=== PATIENT | female | born 1955 | race Caucasian/White ===

== ENCOUNTER → 2016-09-25 | Outpatient (CLI) | payer BC ==
[~2016-09-25] MED LIST: ACET-1256 PO; FEXO1TAB58 PO; HYZ/50125 PO; LOSA1TAB38 PO; MULT-513 PO; OXYC-643 PO; PANT1TAB48 PO; TRIATAB3 PO; VSC/10 PO
[2016-09-25 12:50] LABS: BLOOD UREA NITROGEN 16 mg/dl (7-18); BUN/CREATININE RATIO 21.5 (10-20); CALCIUM 9.5 mg/dl (8.5-10.1); CARBON DIOXIDE 31 mmol/L (21-32); CHLORIDE 106 mmol/L (98-107); CREATININE 0.73 mg/dl (0.60-1.20); GLUCOSE 95 mg/dl (70-99); POTASSIUM 4.3 mmol/L (3.5-5.1); SODIUM 143 mmol/L (136-145)
[2016-09-25 12:54] LABS: CHOLESTEROL 165 mg/dl (0-200); CHOLESTEROL/HDL RATIO 2.1; HDL CHOLESTEROL 80 mg/dl; LDL CHOLESTEROL CALCULATED 61 mg/dl; TRIGLYCERIDES 122 mg/dl (0-150); VERY LOW DENSITY LIPOPROT CALC 24 mg/dl
== END | disposition home or self-care (01) ==
LOC: C.LABPVFM 07:35
PROVIDERS: ATTEND Nurse Practitioner
DX: Z00.00 Encounter for general adult medical examination without abnormal findings (principal); I10 Essential (primary) hypertension

== ENCOUNTER 2016-10-08 11:26 | Emergency (ER) | payer BC ==
[~2016-10-08] VITALS: Ht 167.6 cm; Wt 71.0 kg
[~2016-10-08 11:26] MED LIST changes: -ACET-1256 PO; -FEXO1TAB58 PO; -HYZ/50125 PO
[2016-10-08 11:44] VITALS: TEMP 36.7; Ht 167.6 cm; Wt 71.0 kg
[2016-10-08] MEDS ORDERED: FEXO1TAB58 PO (12:42)
[2016-10-08] MEDS ORDERED: ACET-1256 PO (12:42)
[2016-10-08] MEDS ORDERED: HYZ/50125 PO (12:42)
--- NOTE | 2016-10-08 13:49 | EMERGENCY ROOM VISIT NOTE ---
History Report prepared by Hao: Amarilys Solis Under the Supervision of: Dr. Brooke Polk M.D. First contact with patient: 12:26 Chief Complaint: CONFUSION Stated Complaint: DISORIENTED EARLIER Nursing Triage Summary: Pt reports "period of forgetfulness this morning" approx 0830 that "didn't last long." Pt states, "I went out back to call my and I don't know what prompted me to do that." Denies numbness/tingling or unilateral weakness. Reports mild h/a 06/23. History of Present Illness The patient is a 61 year old female who presents to the Emergency Room with complaints of an episode of confusion this morning. She was outside doing yard work and exerting herself. The next thing she remembers is being inside on the phone with her . She was unable to recall why she called him or where he was going. She could not understand what he was saying and he was unable to understand her. He contacted a friend to go check on her by which time she was back to normal. She believes the episode of confusion lasted around 1 minute. She does not believe that she passed out. She has never had these symptoms before. She reports feeling lightheaded and disoriented. She has some headache. She denies any abdominal pain, urinary symptoms, chest pain, SOB, or vomiting. She has a history of hypertension. She denies any history of cancer or stroke. She took her blood pressure medications and Radha this morning. Source of History: patient Onset: this morning Position: other (global) Quality: other (confusion) Timing: other (episodic) Associated Symptoms: + headache, No SOB, No abdominal pain, No chest pain, No urinary symptoms, No vomiting Note: Pt reports feeling lightheaded, disoriented. Review of Systems See HPI for pertinent positives & negatives. A total of 10 systems reviewed and were otherwise negative. Past Medical & Surgical Medical Problems: (1) ASTHMA, UNSPECIFIED (2) ESOPHAGEAL REFLUX (3) HYPERPARATHYROIDISM, UNSPECIFIED (4) HYPERTENSION NOS (5) Hysterectomy (6) Parathyroidectomy Family History Hypertension Social History Smoking Status: Never Smoker Alcohol Use: occasionally Marital Status: Housing Status: lives with significant other Occupation Status: retired Current/Historical Medications Scheduled Acetaminophen (Tylenol), 1,000 MG PO 2200 Fexofenadine-Pseudoephedrine (Radha-D 24 Hour Allergy), 1 TAB PO 0600 Hctz/Losartan (Hyzaar 12.5MG/50MG), 1 TAB PO QAM Allergies Coded Allergies: Codeine (Verified Allergy, Unknown, HEADACHE, 10/08/16) Lisinopril (Verified Adverse Reaction, Unknown, COUGH, 10/08/16) Physical Exam Vital Signs Date Time Temp Pulse Resp B/P Pulse Ox O2 Delivery O2 Flow Rate FiO2 10/08/16 16:00 65 159/89 95 10/08/16 14:09 67 17 179/96 97 Room Air 10/08/16 12:35 64 161/93 98 Room Air 10/08/16 12:23 57 10/08/16 11:44 36.7 72 18 168/87 97 Room Air Physical Exam Vital signs reviewed. General: Well-appearing, in no significant distress. HEENT: No scleral icterus, PERRLA, neck supple. Atraumatic. Cardiovascular: Regular rate and rhythm, no extra sounds. Pulmonary: Clear to auscultation bilaterally, normal work of breathing. Abdomen: Soft, nontender, nondistended, positive bowel sounds. Musculoskeletal: Atraumatic, no peripheral edema. Neurologic: Patient awake alert and oriented x 3, full strength in all 4 extremities. Cranial nerves 2 through 12 grossly intact. Skin: Warm, dry, no rash Medical Decision & Procedures ER Provider Diagnostic Interpretation: Radiology results as stated below per my review and radiologist interpretation: MRI OF THE BRAIN WITHOUT AND WITH IV CONTRAST CLINICAL HISTORY: Amnesia episode today. COMPARISON STUDY: No previous studies for comparison. TECHNIQUE: Utilizing a 1.5 María magnet and dedicated coil, multiplanar, multiecho imaging of the brain was performed pre and postcontrast administration. IV administration of 7 mL of Gadavist contrast was uneventful. FINDINGS: There are no areas of restricted diffusion. No acute intracranial hemorrhage, midline shift or mass effect is present. Brain volume is normal. Ventricular system is normal. Basilar cisterns are patent. There are no extra-axial collections. Flow-voids for the major intracranial vessels are present. No intracranial mass or pathologic enhancement is identified. Scattered white matter T2 hyperintense foci suggest mild small vessel disease. Calvarial signal is normal. Orbits and sinuses are unremarkable. There is no fluid within the mastoid air cells. IMPRESSION: 1. No acute intracranial findings. 2. No intracranial masses or pathologic enhancement. 3. Scattered white matter T2 hyperintense foci which likely reflect small vessel disease. Electronically signed by: Joseph Bell M.D. 10/08/2016 3:09 PM Dictated Date/Time: 10/08/2016 3:05 PM Laboratory Results 10/08/16 12:20 Red Blood Count 4.84, Mean Corpuscular Volume 85.3, Mean Corpuscular Hemoglobin 29.5, Mean Corpuscular Hemoglobin Concent 34.6, Mean Platelet Volume 9.4, Neutrophils (%) (Auto) 73.2, Lymphocytes (%) (Auto) 19.7, Monocytes (%) (Auto) 5.8, Eosinophils (%) (Auto) 0.9, Basophils (%) (Auto) 0.1, Neutrophils # (Auto) 5.06, Lymphocytes # (Auto) 1.36, Monocytes # (Auto) 0.40, Eosinophils # (Auto) 0.06, Basophils # (Auto) 0.01 10/08/16 12:20 Test 10/08/16 12:20 10/08/16 13:44 10/08/16 13:45 White Blood Count 6.91 K/uL (4.8-10.8) Red Blood Count 4.84 M/uL (4.2-5.4) Hemoglobin 14.3 g/dL (12.0-16.0) Hematocrit 41.3 % (37-47) Mean Corpuscular Volume 85.3 fL (80-100) Mean Corpuscular Hemoglobin 29.5 pg (25-34) Mean Corpuscular Hemoglobin Concent 34.6 g/dl (32-36) Platelet Count 286 K/uL (130-400) Mean Platelet Volume 9.4 fL (7.4-10.4) Neutrophils (%) (Auto) 73.2 % Lymphocytes (%) (Auto) 19.7 % Monocytes (%) (Auto) 5.8 % Eosinophils (%) (Auto) 0.9 % Basophils (%) (Auto) 0.1 % Neutrophils # (Auto) 5.06 K/uL (1.4-6.5) Lymphocytes # (Auto) 1.36 K/uL (1.2-3.4) Monocytes # (Auto) 0.40 K/uL (0.11-0.59) Eosinophils # (Auto) 0.06 K/uL (0-0.5) Basophils # (Auto) 0.01 K/uL (0-0.2) RDW Standard Deviation 41.4 fL (36.4-46.3) RDW Coefficient of Variation 13.2 % (11.5-14.5) Immature Granulocyte % (Auto) 0.3 % Immature Granulocyte # (Auto) 0.02 K/uL (0.00-0.02) Erythrocyte Sedimentation Rate 2 mm/hr (0-21) Anion Gap 7.0 mmol/L (3-11) Est Creatinine Clear Calc Drug Dose 78.7 ml/min Estimated GFR () 96.8 Estimated GFR (Non- 83.5 BUN/Creatinine Ratio 20.1 (10-20) Calcium Level 9.5 mg/dl (8.5-10.1) Magnesium Level 2.4 mg/dl (1.8-2.4) Total Bilirubin 0.5 mg/dl (0.2-1) Direct Bilirubin 0.1 mg/dl (0-0.2) Aspartate Amino Transf (AST/SGOT) 26 U/L (15-37) Alanine Aminotransferase (ALT/SGPT) 32 U/L (12-78) Alkaline Phosphatase 74 U/L (45-117) Total Protein 7.1 gm/dl (6.4-8.2) Albumin 4.0 gm/dl (3.4-5.0) Thyroid Stimulating Hormone (TSH) 0.388 uIu/ml (0.300-4.500) Bedside Troponin I 0.000 ng/ml (0-0.045) Influenza Type A (RT-PCR) Neg for Influ A (NEG) Influenza Type A Antigen Neg for Influ A (NEG) Influenza Type B Antigen Neg for Influ B (NEG) Influenza Type B (RT-PCR) Neg for Influ B (NEG) Laboratory results per my review. ECG Indication: altered mental status Rate (beats per minute): 66 Rhythm: normal sinus Findings: no acute ischemic change, no ectopy ED Course 1229: Past medical records reviewed. The patient was evaluated in room C9. A complete history and physical examination was performed. 1528: Upon reevaluation, the patient appeared to have improvement of her symptoms. I discussed findings with her. She verbalized agreement of the treatment plan. She was discharged home. Medical Decision Differential diagnoses: Intracranial hemorrhage, intracranial mass, migraine headache, tension headache, sinusitis, meningitis This patient was evaluated and appeared to be in no significant distress. IV access was obtained and laboratory work was drawn. The patient was placed on the cardiac catheterization technologist and found to be in a normal sinus rhythm. Laboratory work is fairly unrevealing. An MRI brain combo was performed and is read as above. There are chronic changes without acute abnormality. Urinalysis is negative. There is no evidence of seizure, the patient has no headache at this time. I do not suspect an acute stroke. At this time the etiology of the symptoms is unclear. She will be discharged to follow-up with her primary care physician for possible neurologic evaluation, particularly if this reoccurs. She will return to the ER immediately for worsening of symptoms or any medical concerns. Impression Primary Impression: Amnesia, global, transient Scribe Attestation The scribe's documentation has been prepared under my direction and personally reviewed by me in its entirety. I confirm that the note above accurately reflects all work, treatment, procedures, and medical decision making performed by me. Departure Information Dispostion Home / Self-Care Referrals Elizabeth Rosario C.R.N.P (PCP) Forms HOME CARE DOCUMENTATION FORM, IMPORTANT VISIT INFORMATION Patient Instructions My [facility] Additional Instructions Diagnosis: Transient global amnesia Please follow-up with your primary care provider within the next 2 days for reevaluation. Continue medications as prescribed. Return to the ER immediately for worsening of symptoms, fever, headache or any medical concerns.
[2016-10-08 13:50] LABS: BASO % 0.1 %; BASO ABS # 0.01 K/uL (0-0.2); COMPLETE YES; EOS % 0.9 %; HEMATOCRIT 41.3 % (37-47); IG% 0.3 %; LYMPH % 19.7 %; LYMPH ABS # 1.36 K/uL (1.2-3.4); MEAN CELL VOLUME 85.3 fL (80-100); MEAN CORPUSCULAR HEMOGLOBIN 29.5 pg (25-34); MEAN CORPUSCULAR HGB CONC 34.6 g/dl (32-36); MEAN PLATELET VOLUME 9.4 fL (7.4-10.4); MONO % 5.8 %; NEUT % 73.2 %; PLATELET COUNT 286 K/uL (130-400); RED BLOOD COUNT 4.84 M/uL (4.2-5.4); WHITE BLOOD COUNT 6.91 K/uL (4.8-10.8)
[2016-10-08 13:58] LABS: BUN/CREATININE RATIO 20.1 (10-20); CALCIUM 9.5 mg/dl (8.5-10.1); CREATININE 0.76 mg/dl (0.60-1.20); MAGNESIUM 2.4 mg/dl (1.8-2.4); POTASSIUM 3.5 mmol/L (3.5-5.1)
[2016-10-08 14:09] LABS: THYROID STIMULATING HORMONE 0.388 uIu/ml (0.300-4.500)
--- NOTE | 2016-10-08 15:10 | DIAGNOSTIC IMAGING REPORT ---
MRI OF THE BRAIN WITHOUT AND WITH IV CONTRAST CLINICAL HISTORY: Amnesia episode today. COMPARISON STUDY: No previous studies for comparison. TECHNIQUE: Utilizing a 1.5 María magnet and dedicated coil, multiplanar, multiecho imaging of the brain was performed pre and postcontrast administration. IV administration of 7 mL of Gadavist contrast was uneventful. FINDINGS: There are no areas of restricted diffusion. No acute intracranial hemorrhage, midline shift or mass effect is present. Brain volume is normal. Ventricular system is normal. Basilar cisterns are patent. There are no extra-axial collections. Flow-voids for the major intracranial vessels are present. No intracranial mass or pathologic enhancement is identified. Scattered white matter T2 hyperintense foci suggest mild small vessel disease. Calvarial signal is normal. Orbits and sinuses are unremarkable. There is no fluid within the mastoid air cells. IMPRESSION: 1. No acute intracranial findings. 2. No intracranial masses or pathologic enhancement. 3. Scattered white matter T2 hyperintense foci which likely reflect small vessel disease. Electronically signed by: Joseph Bell M.D. 10/08/2016 3:09 PM Dictated Date/Time: 10/08/2016 3:05 PM
[2016-10-08] MEDS ORDERED: GADAVIST IV PRN (15:15)
[2016-10-08 16:00] VITALS: BP 159/89; PULSE 65; O2SAT 95
[2016-10-08 16:00] LABS: INFLUENZA A PCR Neg for Influ A (NEG); INFLUENZA B PCR Neg for Influ B (NEG)
== END 2016-10-08 16:00 | disposition home or self-care (01) ==
LOC: C.EDB 11:28 → C.EDC 16:00
DX: G45.4 Transient global amnesia (principal); R42 Dizziness and giddiness; R51 Headache; I10 Essential (primary) hypertension; J45.909 Unspecified asthma, uncomplicated; K21.9 Gastro-esophageal reflux disease without esophagitis; Z79.899 Other long term (current) drug therapy; Z82.49 Family history of ischemic heart disease and other diseases of the circulatory system

== ENCOUNTER → 2016-12-28 | Outpatient (CLI) | payer BC ==
[~2016-12-28] MED LIST changes: +ACET-1256 PO; +FEXO1TAB58 PO; +HYZ/50125 PO; -LOSA1TAB38 PO; -MULT-513 PO; -OXYC-643 PO; -PANT1TAB48 PO; -TRIATAB3 PO; -VSC/10 PO
--- NOTE | 2016-12-29 07:42 | MAMMOGRAPHY REPORT ---
BILATERAL DIGITAL SCREENING MAMMOGRAM TOMOSYNTHESIS WITH CAD: 12/28/2016 CLINICAL HISTORY: Routine screening. Patient has no complaints. TECHNIQUE: Breast tomosynthesis in addition to standard 2D mammography was performed. Current study was also evaluated with a Computer Aided Detection (CAD) system. COMPARISON: Comparison is made to exams dated: 12/26/2015 mammogram, 12/24/2014 mammogram, 12/22/2013 m ammogram, 12/21/2012 mammogram, 12/21/2011 mammogram, and 12/19/2010 mammogram - [facility] [address] BREAST COMPOSITION: There are scattered areas of fibroglandular density in both breasts. FINDINGS: The parenchymal pattern is unchanged. No developing mass, architectural distortion or clus ter of suspicious microcalcifications is seen in either breast. IMPRESSION: ACR BI-RADS CATEGORY 2: BENIGN There is no mammographic evidence of malignancy. A 1 year screening mammogram is recommended. The pa tient will receive written notification of the results. Approximately 10% of breast cancers are not detected with mammography. A negative mammographic report should not delay biopsy if a clinically suggestive mass is present. Dorcas Mccord M.D. ay/:12/28/2016 18:03:36 Bright Cutter: Josselyn DURAN(Julia)(Mei), [facility] letter sent: Normal 1/2 BI-RADS Code: ACR BI-RADS Category 2: Benign
== END | disposition home or self-care (01) ==
LOC: C.MAMM 11:33
PROVIDERS: ATTEND Obstetrics & Gynecology
DX: Z12.31 Encounter for screening mammogram for malignant neoplasm of breast (principal)

== ENCOUNTER → 2017-05-25 | Outpatient (CLI) | payer BC ==
[2017-05-25 18:39] LABS: BLOOD UREA NITROGEN 16 mg/dl (7-18); BUN/CREATININE RATIO 15.2 (10-20); CALCIUM 9.9 mg/dl (8.5-10.1); CARBON DIOXIDE 31 mmol/L (21-32); CHLORIDE 103 mmol/L (98-107); CREATININE 1.06 mg/dl (0.60-1.20); GLUCOSE 102 mg/dl (70-99); POTASSIUM 3.6 mmol/L (3.5-5.1); SODIUM 137 mmol/L (136-145)
== END | disposition home or self-care (01) ==
LOC: C.LABPVFM 13:54
PROVIDERS: ATTEND Nurse Practitioner
DX: R53.83 Other fatigue (principal); R13.10 Dysphagia, unspecified

== ENCOUNTER → 2017-05-29 | Outpatient (CLI) | payer BC ==
[2017-05-29 13:23] LABS: URINE APPEARANCE CLEAR (CLEAR); URINE BILIRUBIN NEG (NEG); URINE NITRITE NEG (NEG); URINE PH 7.5 (4.5-7.5); URINE SPECIFIC GRAVITY 1.015 (1.000-1.030); UROBILINOGEN NEG (NEG); ZZUR CULT IF INDIC CLEAN CATCH YES
[2017-05-29 13:34] LABS: MANUAL MICROSCOPIC REQUIRED? NO; REVIEW REQ? YES; SULFASALICYLIC ACID POS (NEG); URINE COLOR PINK
== END | disposition home or self-care (01) ==
LOC: C.LABPVFM 11:47
PROVIDERS: ATTEND Family Medicine
DX: R39.9 Unspecified symptoms and signs involving the genitourinary system (principal)

== ENCOUNTER → 2017-06-24 | Day surgery (SDC) | payer BC ==
[2017-06-16 07:55] VITALS: Ht 166.4 cm; Wt 72.7 kg
[~2017-06-24] VITALS: Ht 166.4 cm; Wt 72.7 kg
[~2017-06-24] MED LIST changes: -ACET-1256 PO; +JUICE PLUS PO; +LIDOCAINE HCL 2% 2 ML VIAL (20MG/ML) ONE; +PRLSR20 PO; +PROPOFOL IV EMULSION 10 MG/ML 20 ML VIAL IV ONE; +SODIUM CHLORIDE 0.9% 500ML 500 ML IV ONE
[2017-06-24 15:07] VITALS: TEMP 36.7
--- NOTE | 2017-06-24 15:21 | Endo History and Physical ---
History & Physical Date of Service: Jun 24, 2017. Chief Complaint: Reflux, Dysphagia Referring Physician: Elizabeth Rosario History of Present Illness 61 yo CF who presents for EGD secondary to GERD and dysphagia. Past Surgical History Hx Cardiac Surgery: No Hx Internal Defibrillator: No Hx Pacemaker: No Hx Abdominal Surgery: Yes (RANDY BSO) Hx of Implantable Prosthesis: No Hx Post-Op Nausea and Vomiting: No Hx Cancer Surgery: No Hx Thoracic Surgery: No Hx Orthopedic: No Hx Urinary Tract Surgery: No Family History None Social History Smoking Status: Never Smoker Hx Substance Use: No Hx Alcohol Use: Yes (~1 DRINK/DAY) Allergies Coded Allergies: Codeine (Verified Adverse Reaction, Mild, HEADACHE, 06/24/17) Lisinopril (Verified Adverse Reaction, Mild, COUGH, 06/24/17) Current Medications Reported Home Medications Medications Dose Route/Sig Max Daily Dose Days Date Category [Juice Plus] 3 Cap PO DAILY 06/16/17 Reported Prilosec (Omeprazole) 20 Mg Capcr 20 Mg PO Q2D 06/16/17 Reported Radha-D 24 Hour Allergy (Fexofenadine-Pseudoephedrine) 1 Tab Tab 1 Tab PO DAILY PRN 10/08/16 Reported Hyzaar 12.5MG/50MG (HCTZ/Losartan Potassium) 1 Ea Tab 1 Tab PO QAM 10/08/16 Reported Vital Signs Weight (Kilograms): 72.73 Height (Feet): 5 Height (Inches): 5.5 Date Time Temp Pulse Resp B/P (MAP) Pulse Ox O2 Delivery O2 Flow Rate FiO2 06/24/17 15:07 36.7 79 18 163/75 (104) 98 Room Air Physical Exam General Appearance: WD/WN, no apparent distress Respiratory/Chest: Auscultation: breath sounds normal Cardiovascular: Heart Auscultation: RRR Abdomen: Bowel Sounds: normal Inspection & Palpation: soft, non-distended, no tenderness, guarding & rebound Assessment and Plan Assessment: 61 yo CF who presents for EGD secondary to GERD and dysphagia. Plan: Proceed with EGD.
--- NOTE | 2017-06-24 15:56 | Discharge Instructions ---
Endoscopy Patient Instructions Date / Procedure(s) Performed Jun 24, 2017. EGD Allergy Information Coded Allergies: Codeine (Verified Adverse Reaction, Mild, HEADACHE, 06/24/17) Lisinopril (Verified Adverse Reaction, Mild, COUGH, 06/24/17) Discharge Date / Findings Jun 24, 2017. Schatzki's Ring s/p dilation to 18mm Hiatal hernia Medication Instructions 1) Increase Prilosec to 20mg by mouth each morning 1/2 hour prior to breakfast. 2) OK to resume all medications today as prescribed Reported Home Medications Medications Dose Route/Sig Max Daily Dose Days Date Category [Juice Plus] 3 Cap PO DAILY 06/16/17 Reported Prilosec (Omeprazole) 20 Mg Capcr 20 Mg PO Q2D 06/16/17 Reported Radha-D 24 Hour Allergy (Fexofenadine-Pseudoephedrine) 1 Tab Tab 1 Tab PO DAILY PRN 10/08/16 Reported Hyzaar 12.5MG/50MG (HCTZ/Losartan Potassium) 1 Ea Tab 1 Tab PO QAM 10/08/16 Reported Provider Instructions Activity Restrictions - No exercising or heavy lifting for 24 hours. - Do not drink alcohol the day of the procedure. - Do not drive a car or operate machinery until the day after the procedure. - Do not make any important decisions or sign important papers in 24 hours after the procedure. Following Day: - Return to full activity which may include returning to work/school. Diet Start your diet with liquids and light foods (jello, soup, juice, toast). Then eat your usual diet if not nauseated. Treatment For Common After Affects For mild abdominal pain, bloating, or excessive gas: - Rest - Eat lightly - Lie on right side Follow-Up Information Follow-up with Elizabeth Rosario as scheduled Anesthesia Information What You Should Know You have had a procedure that required some medicine to reduce anxiety and discomfort. This treatment is called moderate sedation. After receiving the treatment, you may be sleepy, but you will be able to breathe on your own. The effects of the treatment may last for several hours. Follow these instructions along with Activity/Diet recommendations noted above: * Do NOT do anything where dizziness or clumsiness would be dangerous. * Rest quietly at home today, then you can be up and about tomorrow. * Have a responsible person stay with you the rest of today. * You may have had an I.V. today. If so, you may take the dressing off later today. Recommendations Call your doctor if: * Trouble breathing * Continuous vomiting for more than 24 hours * Temperature above 101 degrees * Severe abdominal pain or bloating * Pain not relieved by pain medicine ordered * There is increased drainage or redness from any incision * A large amount of rectal bleeding greater than 2-3 tablespoons. (If you had a polyp/s removed or have hemorrhoids, a small amount of blood - from the rectum is to be expected.) * You have any unanswered questions or concerns. IN THE EVENT OF A SERIOUS EMERGENCY, GO TO THE NEAREST EMERGENCY ROOM Your discharge instructions were prepared by provider Rosendo Eng. Patient Instructions Signature Page S Caryl Patient (or Guardian) Signature/Date: I have read and understand the instructions given to me by my caregivers. Caregiver/RN/Doctor Signature/Date: The above-named patient and/or guardian has received patient instructions on this date. + Original Patient Signature Page (only) stays with chart. Please make copy for patient.
--- NOTE | 2017-06-24 16:00 | GI REPORT ---
Procedure Date: 06/24/2017 3:29 PM Procedure: Upper GI endoscopy Indications: Dysphagia, Gastro-esophageal reflux disease Medicines: Monitored Anesthesia Care Complications: No immediate complications. Estimated Blood Loss: Estimated blood loss: none. Procedure: Pre-Anesthesia Assessment: - Prior to the procedure, a History and Physical was performed, and patient medications and allergies were reviewed. The patient's tolerance of previous anesthesia was also reviewed. The risks and benefits of the procedure and the sedation options and risks were discussed with the patient. All questions were answered, and informed consent was obtained. Prior Anticoagulants: The patient has taken no previous anticoagulant or antiplatelet agents. ASA Grade Assessment: II - A patient with mild systemic disease. After reviewing the risks and benefits, the patient was deemed in satisfactory condition to undergo the procedure. After obtaining informed consent, the endoscope was passed under direct vision. Throughout the procedure, the patient's blood pressure, pulse, and oxygen saturations were monitored continuously. The scope was introduced through the mouth, and advanced to the second part of duodenum. The upper GI endoscopy was accomplished without difficulty. The patient tolerated the procedure well. Findings: A moderate Schatzki ring (acquired) was found at the gastroesophageal junction. A TTS dilator was passed through the scope. Dilation with a 15-16.5-18 mm balloon dilator was performed to 18 mm. The dilation site was examined and showed moderate improvement in luminal narrowing. A small hiatal hernia was present. The examined duodenum was normal. Impression: - Moderate Schatzki ring. Dilated. - Small hiatal hernia. - Normal examined duodenum. - No specimens collected. Recommendation: - Resume previous diet. - Use Prilosec (omeprazole) 20 mg PO daily. - Return to GI clinic as previously scheduled. Rosendo Eng DO 06/24/2017 3:59:24 PM This report has been signed electronically. Note Initiated On: 06/24/2017 3:29 PM I attest to the content of the Intraoperative Record and orders documented therein, exceptions below
--- NOTE | 2017-06-24 16:11 | Anesthesiology Progress Note ---
Anesthesia Post Op Note Date & Time Jun 24, 2017 at 16:11 Vital Signs Pain Intensity: 0 Vital Signs Past 12 Hours Date Time Temp Pulse Resp B/P (MAP) Pulse Ox O2 Delivery O2 Flow Rate FiO2 06/24/17 15:59 78 16 105/70 (82) 97 Room Air 06/24/17 15:07 36.7 79 18 163/75 (104) 98 Room Air Notes Mental Status: alert / awake / arousable, participated in evaluation Pt Amnestic to Procedure: Yes Nausea / Vomiting: adequately controlled Pain: adequately controlled Airway Patency, RR, SpO2: stable & adequate BP & HR: stable & adequate Hydration State: stable & adequate Anesthetic Complications: no major complications apparent
[2017-06-24 16:28] VITALS: BP 144/80; PULSE 64; O2SAT 98
== END | disposition home or self-care (01) ==
LOC: C.GI 14:50
PROVIDERS: ATTEND Internal Medicine
DX: K22.2 Esophageal obstruction (principal); K44.9 Diaphragmatic hernia without obstruction or gangrene; K21.9 Gastro-esophageal reflux disease without esophagitis; I10 Essential (primary) hypertension; M19.90 Unspecified osteoarthritis, unspecified site; Z79.899 Other long term (current) drug therapy

== ENCOUNTER → 2017-12-29 | Outpatient (CLI) | payer BC ==
[~2017-12-29] MED LIST changes: -LIDOCAINE HCL 2% 2 ML VIAL (20MG/ML) ONE; -PROPOFOL IV EMULSION 10 MG/ML 20 ML VIAL IV ONE; -SODIUM CHLORIDE 0.9% 500ML 500 ML IV ONE
--- NOTE | 2017-12-30 08:10 | MAMMOGRAPHY REPORT ---
BILATERAL DIGITAL SCREENING MAMMOGRAM TOMOSYNTHESIS WITH CAD: 12/29/2017 CLINICAL HISTORY: Routine screening. Patient has no complaints. TECHNIQUE: The study was acquired using full field digital technology and interpreted from soft copy. Tomosynthesis (3D imaging) was done in the CC and MLO projections. A C-view reconstruction was then done. Current study was also evaluated with a Computer Aided Detection (CAD) system. COMPARISON: Comparison is made to exams dated: 12/28/2016 mammogram, 12/26/2015 mammogram, 12/24/2014 m ammogram, 12/22/2013 mammogram, 12/21/2012 mammogram, and 12/21/2011 mammogram - [facility] nter. BREAST COMPOSITION: There are scattered areas of fibroglandular density in both breasts. FINDINGS: No suspicious masses, calcifications, or areas of architectural distortion are noted in either breast . There has been no significant interval change compared to prior exams. IMPRESSION: ACR BI-RADS CATEGORY 1: NEGATIVE There is no mammographic evidence of malignancy. A 1 year screening mammogram is recommended.( 019) The patient will receive written notification of the results. Approximately 10% of breast cancers are not detected with mammography. A negative mammographic report should not delay biopsy if a clinically suggestive mass is present. Mia Rivera M.D. /:12/29/2017 12:39:20 Turbo Electric Operator: RT Tl(Julia)(M)(BD), [facility] letter sent: Normal 1/2 BI-RADS Code: ACR BI-RADS Category 1: Negative
== END | disposition home or self-care (01) ==
LOC: C.MAMM 11:47
PROVIDERS: ATTEND Obstetrics & Gynecology
DX: Z12.31 Encounter for screening mammogram for malignant neoplasm of breast (principal)

== ENCOUNTER 2022-08-04 01:19 | Inpatient (IN) ==
[2022-08-04] MEDS ORDERED: dilTIAZem HCl 5 MG/ML 5 ML VIAL IV STA (01:30)
[2022-08-04] MEDS ORDERED: dilTIAZem HCL 125 MG in DEXTROSE 5% 100 ML IV SCH (01:30)
[2022-08-04] MEDS ORDERED: STAT IV Infusion **Titration per Protocol STA (01:30)
--- NOTE | 2022-08-04 01:56 | Emergency Department Note ---
History of Present Illness General Chief complaint: Chest Pain Stated complaint: CHEST PAIN,UNEVEN HEARTRATE Time Seen by Provider: 08/04/22 01:30 History of Present Illness Maximum Pain Intensity: 6 66-year-old female presents emergency department states around 10:30 PM this evening she had palpitations and chest tightness. Patient denies any other complaints denies shortness of breath denies nausea vomiting diaphoresis. Patient states that she had a normal day today. Patient denies any alcohol chocolate extra caffeine. Patient states a stress test in the past however has never had any other cardiac issues. Currently complains of chest tightness and palpitations. Home Medications Medication Instructions Recorded Confirmed Type Juice Plus 6 cap PO DAILY 03/13/21 08/04/22 History losartan 100 mg tablet 100 mg PO DAILY #90 tabs 02/06/22 08/04/22 Rx Allergies Allergy/AdvReac Type Severity Reaction Status Date / Time codeine AdvReac Intermediate HEADACHE Verified 08/04/22 01:58 lisinopril AdvReac Intermediate COUGH Verified 08/04/22 01:58 Past Med/Surg History Medical History 1st MTP arthritis Acid reflux DIET CONTROLLED Arthritis Arthritis, midfoot Bunion of great toe Esophageal dysphagia Esophagitis CONTROLLED BY DIET History of asthma IN THE PAST R/T ALLERGIES (NO INHALER) Hyperparathyroidism, unspecified (02/16/13) HX OF (HAD SURGERY TO CORRECT) Hypertension Schatzki's ring Seasonal allergies Surgical History History of arthroscopy of left knee History of carpal tunnel release LEFT History of esophagogastroduodenoscopy (EGD) History of parathyroidectomy 06/2012 @ [facility] [place]--d/t elevated calcium levels History of tooth extraction wisdom teeth History of total abdominal hysterectomy and bilateral salpingo-oophorectomy [place] teeth removed Family History Sister Family history of reaction to anesthesia nausea/vomiting Mother Family hx colonic polyps Social History Smoking Status: Never smoker Second Hand Exposure: No; Hx Alcohol Use: Yes Alcohol type: beer and wine Preferred Language: German Communication Ability: Effective Breast Puller Required: No Beliefs That Will Affect Care: None Current Living Situation: Spouse Feels Safe at Home: Yes Assistive Devices: Glasses Review of Systems A total of 10 systems reviewed and were otherwise negative Cardiovascular: + chest pain and + palpitations Physical Exam Vital Signs Vital Signs - 24 hr 08/04/22 01:22 08/04/22 01:41 Temperature 36.0 C L Temperature Source Temporal Artery Scan Pulse Rate 143 H 100 H Pulse Rhythm Regular Respiratory Rate 18 17 Respiratory Effort / Characteristics Non-Labored Spontaneous Respiratory Depth Normal Blood Pressure 123/92 Blood Pressure Mean 102 Blood Pressure Position Sitting Pulse Oximetry 97 92 Oxygen Delivery Method Room Air Room Air Sepsis Recent Fever Within 48 Hours No Sepsis New/Unexplained Change in Mental Status N/A Sepsis Action Taken by Nursing No Action Required GENERAL: Patient is awake alert in no acute distress patient is resting comfortably and showing no signs of anxiety EYES: The conjunctivae are clear. The pupils are round and reactive. EARS, NOSE, MOUTH AND THROAT: The nose is without any evidence of any deformity. Mucous membranes are moist. Tongue is midline. NECK: The neck is nontender and supple. RESPIRATORY: Normal respiratory effort is noted there is no evidence of wheezing rhonchi or rales CARDIOVASCULAR: Irregularly irregular tachycardic. GASTROINTESTINAL: The abdomen is soft. Abdomen is nontender. PELVIS: The Pelvis is stable. No tenderness to palpation is noted. BACK: No midline tenderness or or step-off noted range of motion in flexion extension as well as rotation no signs of muscle spasm noted MUSCULOSKELETAL/EXTREMITIES: There is no evidence of gross deformity full range of motion is noted in the hips and shoulders. SKIN: There is no obvious evidence of any rash. There are no petechiae, pallor or cyanosis noted. NEUROLOGIC: Patient is awake alert and oriented x3 strength is symmetric Course Reevaluation(s) Reevaluation #1: Patient is on a Cardizem drip resting in no distress on repeat examination Time: 02:41 Consultations [facility] Time: 02:41 Administered Medications Diltiazem HCl 125 mg/ Dextrose 125 mls @ 5 mls/hr IV .[facility]; Protocol Stop: 09/03/22 01:29 Last Admin: 08/04/22 01:48 Dose: 5 mg/hr, 5 mls/hr Documented By: CAMILLE Co-signed By: MICKI Discontinued Medications Diltiazem HCl (Diltiazem Hcl 5 Mg/Ml 5 Ml Vial) 20 mg IV NOW STA Stop: 08/04/22 01:31 Last Admin: 08/04/22 01:36 Dose: 20 mg Documented By: CAMILLE Co-signed By: BLACK Miscellaneous (Stat Iv Infusion Titration Per Protocol) 1 each N/A NOW STA Stop: 08/04/22 01:31 Last Admin: 08/04/22 02:02 Dose: Not Given Documented By: CAMILLE Critical Care Time Critical Care Time: Yes Total Critical Care Time: 40 I have personally spent greater than 40 minutes of critical care time in the direct management of this patient. This includes bedside care, interpretation of diagnostic studies, and testing, discussion with consultants, patient, and family members, and other required patient management activities. These minutes are in excess of all separately billable procedures. Medical Decision Making Medical Records Attestation: I reviewed the patient's medical records. Home Medications Current Medication List: was personally reviewed by Laboratory Data Attestation: I reviewed the patient's lab results. Patient's lab work reviewed by me 08/04/22 01:37 08/04/22 01:37 Lab Results 08/04/22 08/04/22 08/04/22 Range/Units 01:37 01:37 01:45 WBC 7.58 (4.8-10.8) K/ul RBC 5.29 (4.20-5.40) M/uL Hgb 15.2 (12.0-16.0) g/dl Hct 44.8 (37.0-47.0) % MCV 84.7 (80.0-100.0) fL MCH 28.7 (25.0-34.0) pg MCHC 33.9 (32.0-36.0) g/dL RDW Std Deviation 39.8 (36.4-46.3) fL RDW Coeff of Vincent 12.9 (11.5-14.5) % Plt Count 311 (130-400) K/uL MPV 9.3 L (9.4-12.4) fL Immature Gran % (Auto) 0.3 % Neut % (Auto) 68.1 % Lymph % (Auto) 22.7 % [place] % (Auto) 5.9 % Eos % (Auto) 2.9 % Baso % (Auto) 0.1 % Neut # (Auto) 5.16 (1.40-6.50) K/uL Lymph # (Auto) 1.72 (1.2-3.4) K/uL [place] # (Auto) 0.45 (0.11-0.59) K/uL Eos # (Auto) 0.22 (0-0.50) K/uL Baso # (Auto) 0.01 (0-0.2) K/uL Immature Gran # (Auto) 0.02 (0.01-0.20) K/uL Sodium 143 (136-145) mmol/L Potassium 3.5 (3.5-5.1) mmol/L Chloride 108 H (98-107) mmol/L Carbon Dioxide 29 (21-32) mmol/L Anion Gap 6 (3-11) BUN 26 H (6-23) mg/dl Creatinine 0.78 (0.6-1.2) mg/dl Est Cr Clr Drug Dosing 70.4 ml/min Est GFR ( Amer) 90.5 ml/min Est GFR (Non-Af Amer) 78.1 ml/min BUN/Creatinine Ratio 33.3 H (10-20) Glucose 174 H (70-99(Fasting)) mg/dl Calcium 10.3 H (8.5-10.1) mg/dl Total Bilirubin 0.4 (0.2-1.0) mg/dl AST 18 (13-39) U/L ALT 13 (7-52) U/L Alkaline Phosphatase 89 (34-104) U/L Troponin I High Sens 20.9 H (0-14) pg/ml Total Protein 6.7 (6.0-8.3) gm/dl Albumin 4.3 (3.4-5.0) gm/dl Globulin 2.4 L (2.5-4.0) gm/dl Albumin/Globulin Ratio 1.8 (0.9-2) Lipase 38 (11-82) U/L SARS-CoV-2, RNA, NAAT NEGATIVE (NEGATIVE) Imaging Data Attestation: I personally reviewed and interpreted this imaging study as follows: My Impression: Chest x-ray interpreted by me negative for infiltrate mediastinum, no pneumothorax, no effusion ECG Data Attestation: I personally reviewed and interpreted this ECG as follows: Additional Comments: EKG interpreted by me rapid atrial fibrillation rate of [address]-T change in the inferior leads left ventricular hypertrophy normal axis no obvious ST segment elevation MDM Narrative Medical decision making differential diagnosis includes angina, unstable angina, acute coronary syndrome, acute DC, cardiac dysrhythmia, rapid atrial fibrillation Plan is to check labs, EKG, chest x-ray, treat rapid atrial fibrillation Patient was started on an IV Cardizem drip Patient will be admitted for further evaluation of new onset rapid atrial fibrillation Case was discussed with the hospitalist for admission Impression & Plan Atrial fibrillation with RVR Discharge Plan Visit Data Chief Complaint: Chest Pain Stated Complaint: CHEST PAIN,UNEVEN HEARTRATE ED Provider: Scar Hernandez Discharge Problem: Atrial fibrillation with RVR Patient Disposition: Admitted As Inpatient Forms Stand Alone Forms: [facility] Prescriptions Prescriptions: No Action losartan 100 mg tablet 100 mg PO DAILY Qty: 90 3RF Patient Comments: QAM Juice Plus 6 cap PO DAILY Referrals Referrals: Elizabeth Rosario CRNP [Primary Care Provider] -
[2022-08-04] MEDS ORDERED: ASPIRIN CHEW 324 MG PO STA (01:59)
[2022-08-04 02:17] LABS: Basophils # (auto) 0.01 K/uL (0-0.2); Basophils % (auto) 0.1 %; Eosinophils # (auto) 0.22 K/uL (0-0.50); Eosinophils % (auto) 2.9 %; Hematocrit (blood only) 44.8 % (37.0-47.0); Hemoglobin 15.2 g/dl (12.0-16.0); Immature Granulocytes # (auto) 0.02 K/uL (0.01-0.20); Immature Granulocytes % (auto) 0.3 %; Lymphocytes # (auto) 1.72 K/uL (1.2-3.4); Lymphocytes % (auto) 22.7 %; Mean Corpuscular Hemoglobin 28.7 pg (25.0-34.0); Mean Corpuscular Hgb Conc 33.9 g/dL (32.0-36.0); Mean Corpuscular Volume 84.7 fL (80.0-100.0); Mean Platelet Volume 9.3 fL (9.4-12.4); Monocytes # (auto) 0.45 K/uL (0.11-0.59); Monocytes % (auto) 5.9 %; Neutrophils # (auto) 5.16 K/uL (1.40-6.50); Neutrophils % (auto) 68.1 %; Platelet Count 311 K/uL (130-400); RDW Coefficient of Variation 12.9 % (11.5-14.5); RDW Standard Deviation 39.8 fL (36.4-46.3); Red Blood Count 5.29 M/uL (4.20-5.40); White Blood Count 7.58 K/ul (4.8-10.8)
[2022-08-04 02:31] LABS: Albumin Globulin Ratio 1.8 (0.9-2); Albumin Level 4.3 gm/dl (3.4-5.0); BUN Creatinine Ratio 33.3 (10-20); Bilirubin,Total 0.4 mg/dl (0.2-1.0); Calcium 10.3 mg/dl (8.5-10.1); Creatinine Clr Calc Pharmacy 70.4 ml/min; Est GFR (African American) 90.5 ml/min; Est GFR (Non-African American) 78.1 ml/min; Globulin 2.4 gm/dl (2.5-4.0); Potassium 3.5 mmol/L (3.5-5.1); Total Protein 6.7 gm/dl (6.0-8.3)
[2022-08-04 02:38] LABS: Troponin I High Sensitivity 20.9 pg/ml (0-14)
[2022-08-04 02:46] LABS: Partial Thromboplastin Time 27.5 Seconds (21.0-31.0); Prothrombin Time 10.3 Seconds (9.0-12.0)
--- NOTE | 2022-08-04 03:12 | History & Physical Report ---
Date of Service August 04, 2022 Assessment & Plan (1) Atrial fibrillation with RVR: Plan: 58-year-old female presenting with new onset atrial fibrillation with rapid ventricular response. No history of prior. No obvious triggerspatient denies alcohol use, heavy caffeine use. Presently on diltiazem drip just increased to 10 mg/h. Heart rate improving slowly, mostly low 100s to 120s now. Blood pressure slightly decreased at 98/66 Patient reports symptoms have improved. Admit to PCU Continue diltiazem drip Heparin dripChad 2 VASc score = 3 points (age 66, female, history of hypertension) Check 2D echo Check magnesium level and TSH Cardiology consultation appreciated Repeat troponin in the morning (2) Hypertension: Plan: Patient with history of hypertension. She reports adequate management on losartan 100 mg p.o. daily We will hold losartan for now while patient is on Cardizem drip Continue to monitor FENHep-Lock. Monitor electrolytes and replete as needed. Heart healthy diet as tolerated Prophylaxisheparin drip as above for management of atrial fibrillation Codefull per discussion with patient Dispositionadmit to PCU History of Present Illness Chief Complaint: Palpitations, chest pressure Primary Care Provider: JUVENTINO Yu Sherrill Hutson is a 66-year-old female with history of GERD, asthma, hypertension and hyperparathyroidism presenting with acute onset of palpitations and chest pressure which began this evening around 2245. Patient was laying in bed when she had sudden onset of racing heart and substernal pressure. Patient with history of prior in November 2021 which was self-limiting. Presently feels well, heart rate is improved. Chest pressure has resolved. No additional complaints. Patient specifically denies shortness of breath, diaphoresis, syncope or dizziness. Denies fever, chills, nausea, vomiting, diarrhea. No prior history of arrhythmia or cardiac issues. In the ER heart rate ranging from low 100s to 140s. She was given diltiazem bolus and drip. ER course: Aspirin 324 mg Diltiazem 20 mg IV followed by drip Allergies Allergy/AdvReac Type Severity Reaction Status Date / Time codeine AdvReac Intermediate HEADACHE Verified 08/04/22 01:58 lisinopril AdvReac Intermediate COUGH Verified 08/04/22 01:58 Home Medications Medication Instructions Recorded Confirmed Type Juice Plus 6 cap PO DAILY 03/13/21 08/04/22 History losartan 100 mg tablet 100 mg PO DAILY #90 tabs 02/06/22 08/04/22 Rx Past Med/Surg History Medical History 1st MTP arthritis Acid reflux DIET CONTROLLED Arthritis Arthritis, midfoot Bunion of great toe Esophageal dysphagia Esophagitis CONTROLLED BY DIET History of asthma IN THE PAST R/T ALLERGIES (NO INHALER) Hyperparathyroidism, unspecified (02/16/13) HX OF (HAD SURGERY TO CORRECT) Hypertension Schatzki's ring Seasonal allergies Surgical History History of arthroscopy of left knee History of carpal tunnel release LEFT History of esophagogastroduodenoscopy (EGD) History of parathyroidectomy 06/2012 @ [facility] [place]d/t elevated calcium levels History of tooth extraction wisdom teeth History of total abdominal hysterectomy and bilateral salpingo-oophorectomy [place] teeth removed Family History Sister Family history of reaction to anesthesia nausea/vomiting Mother Family hx colonic polyps Social History Smoking Status: Never smoker Second Hand Exposure: No; Hx Alcohol Use: Yes Alcohol type: beer and wine Preferred Language: Bangladeshi Communication Ability: Effective Bellperson Required: No Beliefs That Will Affect Care: None Current Living Situation: Spouse Feels Safe at Home: Yes Assistive Devices: Glasses Review of Systems Review of Systems: All systems reviewed & are unremarkable except as noted in HPI & below Physical Exam Physical Exam: General: patient resting comfortably, NAD, non-toxic in appearance, AA&O x 4 Skin: warm, dry, intact, no rashes or lesions HEENT: NC/AT, PERRL, EOMI, anicteric sclera, conjunctiva without injection, external ear normal to inspection and nontender, nares patent, moist mucus membranes, dentition intact, no oropharyngeal lesions, neck supple, trachea midline, no LAD, no thyromegaly, no JVD Heart: +S1/S2, irregularly irregular, no m/r/g Lungs: equal air entry bilaterally, no rales/rhonchi/wheezes Abd: +BS, soft, NT/ND, no masses/organomegaly/ascites Ext: warm, 2+ pulses in UE/LE bilaterally, no clubbing/cyanosis or edema Neuro: nonfocal, patient AA&O x 4, speech intact, no facial droop, moving all extremities on command with equal strength 5/5 Results & Data Results & Data ([facility]) Vital Signs (Past 12 Hours) Vital Signs Temp Pulse Resp BP Pulse Ox O2 Del Method 08/04/22 02:30 118 H 16 96 08/04/22 02:30 98/66 L 08/04/22 02:00 81 18 95 08/04/22 02:00 127/32 L 08/04/22 01:40 105/57 L 08/04/22 01:40 90 17 08/04/22 01:35 156 H 14 08/04/22 01:41 100 H 17 92 Room Air 08/04/22 01:22 36.0 C L 143 H 18 123/92 97 Room Air Laboratory Results Laboratory Results WBC 7.58 K/ul (4.8-10.8) 08/04/22 01:37 RBC 5.29 M/uL (4.20-5.40) 08/04/22 01:37 Hgb 15.2 g/dl (12.0-16.0) 08/04/22 01:37 Hct 44.8 % (37.0-47.0) 08/04/22 01:37 MCV 84.7 fL (80.0-100.0) 08/04/22 01:37 MCH 28.7 pg (25.0-34.0) 08/04/22 01:37 MCHC 33.9 g/dL (32.0-36.0) 08/04/22 01:37 RDW Std Deviation 39.8 fL (36.4-46.3) 08/04/22 01:37 RDW Coeff of Vincent 12.9 % (11.5-14.5) 08/04/22 01:37 Plt Count 311 K/uL (130-400) 08/04/22 01:37 MPV 9.3 fL (9.4-12.4) L 08/04/22 01:37 Immature Gran % (Auto) 0.3 % 08/04/22 01:37 Neut % (Auto) 68.1 % 08/04/22 01:37 Lymph % (Auto) 22.7 % 08/04/22 01:37 [place] % (Auto) 5.9 % 08/04/22 01:37 Eos % (Auto) 2.9 % 08/04/22 01:37 Baso % (Auto) 0.1 % 08/04/22 01:37 Neut # (Auto) 5.16 K/uL (1.40-6.50) 08/04/22 01:37 Lymph # (Auto) 1.72 K/uL (1.2-3.4) 08/04/22 01:37 [place] # (Auto) 0.45 K/uL (0.11-0.59) 08/04/22 01:37 Eos # (Auto) 0.22 K/uL (0-0.50) 08/04/22 01:37 Baso # (Auto) 0.01 K/uL (0-0.2) 08/04/22 01:37 Immature Gran # (Auto) 0.02 K/uL (0.01-0.20) 08/04/22 01:37 PT 10.3 Seconds (9.0-12.0) 08/04/22 01:37 INR 1.0 (0.9-1.1) 08/04/22 01:37 APTT 27.5 Seconds (21.0-31.0) 08/04/22 01:37 PTT Ratio 1.0 08/04/22 01:37 Sodium 143 mmol/L (136-145) 08/04/22 01:37 Potassium 3.5 mmol/L (3.5-5.1) 08/04/22 01:37 Chloride 108 mmol/L (98-107) H 08/04/22 01:37 Carbon Dioxide 29 mmol/L (21-32) 08/04/22 01:37 Anion Gap 6 (3-11) 08/04/22 01:37 BUN 26 mg/dl (6-23) H 08/04/22 01:37 Creatinine 0.78 mg/dl (0.6-1.2) 08/04/22 01:37 Est Cr Clr Drug Dosing 70.4 ml/min 08/04/22 01:37 Est GFR ( Amer) 90.5 ml/min 08/04/22 01:37 Est GFR (Non-Af Amer) 78.1 ml/min 08/04/22 01:37 BUN/Creatinine Ratio 33.3 (10-20) H 08/04/22 01:37 Glucose 174 mg/dl (70-99(Fasting)) H 08/04/22 01:37 Calcium 10.3 mg/dl (8.5-10.1) H 08/04/22 01:37 Magnesium 2.1 mg/dl (1.7-2.4) 08/04/22 01:37 Total Bilirubin 0.4 mg/dl (0.2-1.0) 08/04/22 01:37 AST 18 U/L (13-39) 08/04/22 01:37 ALT 13 U/L (7-52) 08/04/22 01:37 Alkaline Phosphatase 89 U/L (34-104) 08/04/22 01:37 Troponin I High Sens 20.9 pg/ml (0-14) H 08/04/22 01:37 Total Protein 6.7 gm/dl (6.0-8.3) 08/04/22 01:37 Albumin 4.3 gm/dl (3.4-5.0) 08/04/22 01:37 Globulin 2.4 gm/dl (2.5-4.0) L 08/04/22 01:37 Albumin/Globulin Ratio 1.8 (0.9-2) 08/04/22 01:37 Lipase 38 U/L (11-82) 08/04/22 01:37 SARS-CoV-2, RNA, NAAT NEGATIVE (NEGATIVE) 08/04/22 01:45 Diagnostic Findings Chest x-rayby my interpretation, trachea midline, normal cardiac shadow, normal lung parenchyma with no consolidation, edema or pneumothorax ECG Additional Comments: EKGper my interpretation study shows atrial fibrillation with rapid ventricular response, rate of 165 bpm, ST depressions present in inferior and lateral leads PG Care Time/CCT Total # of Minutes Spent Total Time Spent with Patient: Total time spent is greater than 50% in coordination of care (as documented) at patient's floor/unit and/or counseling patient: Coding Level of Care Code 80351 INT INP/OBS CARE 2/55MIN Diagnoses Atrial fibrillation with RVR I48.91 Hypertension I10
[2022-08-04 03:15] LABS: Magnesium 2.1 mg/dl (1.7-2.4)
[2022-08-04] MEDS ORDERED: HEPARIN SODIUM/DEXTROSE 25,000 UNITS/500 ML BAG IV SCH (04:45)
[2022-08-04] MEDS ORDERED: HEPARIN SOD (PORCINE) 1000 UNIT/ML IV ONE (04:45)
[2022-08-04] MEDS ORDERED: Heparin IV Adult Wt-Based Standard WITH Bolus Protocol IV SCH (04:48)
--- NOTE | 2022-08-04 08:00 | Hospitalist Progress Note ---
Date of Service August 04, 2022 Assessment & Plan (1) Atrial fibrillation with RVR: Plan: 58-year-old female presenting with new onset atrial fibrillation with rapid ventricular response. No obvious triggerspatient denies alcohol use, heavy caffeine use. Mg and TSH wnl - on diltiazem drip, SR in the 60s; plan to transition to Heparin dripChad 2 VASc score = 3 points (age 66, female, history of hypertension) Echo significant for grade 1 diastolic dysfunction, mild Cardiology consultation appreciated Repeat troponin in the morning (2) Hypertension: Plan: Patient with history of hypertension. She reports adequate management on losartan 100 mg p.o. daily We will hold losartan for now while patient is on Cardizem drip Continue to monitor FENHep-Lock. Monitor electrolytes and replete as needed. Heart healthy diet as tolerated Prophylaxisheparin drip as above for management of atrial fibrillation Codefull per discussion with patient Dispositionadmit to PCU Admission and Anticipated Discharge Date Admission Date: August 04, 2022 Jacinda Addison is doing well this morning. States that she is feeling significantly better than yesterday. Palpitations and chest pain have resolved. Review of Systems Review of Systems: As per above Physical Exam Physical Exam: Constitutional: well-appearing, no acute distress HEENT: NCAT, no conjunctival injection CV: regular rhythm, no murmur appreciated, extremities well-perfused, no LE edema Resp: CTABL, no wheezes/rales/rhonchi appreciated, no increased work of breathing MSK: no gross deformities appreciated Skin: warm, dry, no rash appreciated Results & Data Results & Data ([facility]) Vital Signs (Past 12 Hours) Vital Signs Temp Pulse Pulse Resp BP BP Pulse Ox 08/04/22 06:57 62 08/04/22 05:30 106 H 15 97 08/04/22 05:30 109/61 08/04/22 05:00 65 15 96 08/04/22 05:00 116/71 08/04/22 04:59 66 17 113/70 96 08/04/22 04:59 08/04/22 04:30 64 14 95 08/04/22 04:30 113/70 08/04/22 04:00 84 10 L 96 08/04/22 04:00 105/68 08/04/22 03:30 105 H 16 95 08/04/22 03:30 110/69 08/04/22 03:00 122 H 17 96 08/04/22 03:00 110/78 08/04/22 02:07 113 H 08/04/22 02:30 118 H 16 96 08/04/22 02:30 98/66 L 08/04/22 02:00 81 18 95 08/04/22 02:00 127/32 L 08/04/22 01:40 105/57 L 08/04/22 01:40 90 17 08/04/22 01:35 156 H 14 08/04/22 01:41 100 H 17 92 08/04/22 01:22 36.0 C L 143 H 18 123/92 97 Pulse Ox O2 Del Method O2 Del Method 08/04/22 06:57 08/04/22 05:30 08/04/22 05:30 08/04/22 05:00 08/04/22 05:00 08/04/22 04:59 Room Air 08/04/22 04:59 96 Room Air 08/04/22 04:30 08/04/22 04:30 08/04/22 04:00 08/04/22 04:00 08/04/22 03:30 08/04/22 03:30 08/04/22 03:00 08/04/22 03:00 08/04/22 02:07 08/04/22 02:30 08/04/22 02:30 08/04/22 02:00 08/04/22 02:00 08/04/22 01:40 08/04/22 01:40 08/04/22 01:35 08/04/22 01:41 Room Air 08/04/22 01:22 Room Air Resident Activity Tracking Resident Involvement: Resident Care Provided Care Provided: Adult Hospital Medicine
--- NOTE | 2022-08-04 08:07 | XRay Report ---
SINGLE VIEW CHEST CLINICAL HISTORY: Atypical chest pain. FINDINGS: An AP, portable, upright chest radiograph is correlated with chest CT dated 12/24/2011. The cardiomediastinal silhouette is top normal for projection. The lungs and pleural spaces are clear not ing bibasilar scarring/atelectasis. No pneumothorax is seen. The skeletal structures are osteopenic. The bony thorax is grossly intact. IMPRESSION: No active disease in the chest. ACT 112: Negative or not required by law. Electronically signed by: Arslan Fernandez M.D. 08/04/2022 8:06 AM
--- NOTE | 2022-08-04 10:48 | Electrocardiogram Report ---
Test Reason : Blood Pressure : / mmHG Vent. Rate : 165 BPM Atrial Rate : 163 BPM P-R Int : 000 ms QRS Dur : 086 ms QT Int : 282 ms P-R-T Axes : 000 056 -08 degrees QTc Int : 467 ms Atrial fibrillation with rapid ventricular response Minimal voltage criteria for LVH, may be normal variant Marked ST abnormality, possible inferior subendocardial injury Abnormal ECG When compared with ECG of 08-OCT-2016 12:14, Atrial fibrillation has replaced Sinus rhythm Vent. rate has increased BY [address] now depressed in Inferior leads ST now depressed in Lateral leads Confirmed by El Waldron ([id number]) on 08/04/2022 10:47:34 AM Referred By: REFERRED SELF Confirmed By:Raza Waldron
--- NOTE | 2022-08-04 11:00 | XCELERA ---
[id number]
--- NOTE | 2022-08-04 11:49 | Cardiology Consultation ---
Date of Consultation August 04, 2022 Assessment & Plan (1) Atrial fibrillation with RVR: (2) Elevated troponin: Plan 1. Atrial fibrillation: She is in with atrial fibrillation rapid ventricular response. This is likely due to age and history of hypertension curiously, her brother does have atrial fibrillation as well. She does drink alcohol on a regular basis but no more last evening that most and generally limited to 1 drink nightly. No significant valvular heart disease. No prior evaluation for sleep apnea, but no prominent symptoms to suggest this diagnosis. At this point I think our efforts should be focused on stroke risk reduction and possibly limiting ventricular rates with recurrences. She would be a good candidate for 1 of the novel anticoagulants. Daily or Xarelto 20 mg daily would be good options. I think switching her losartan to diltiazem would also be a good option. This would have the affect of an antihypertensive and rate control agent. 240 mg daily would seem like a reasonable starting dose. 2. Elevated troponin: Very mild elevation in high sensitivity troponin. Likely related to her rapid atrial fibrillation. I do not believe this is related to an acute coronary syndrome. No other symptoms suggestive of coronary insufficiency or angina leading up to her event last night. Recommend standard risk factor modification according to published guidelines. (LDL actually quite low) History of Present Illness Reason for Consultation: Atrial fibrillation Requesting Physician: Vick Attending Physician: Pedro Yang MD History of Present Illness The patient is a 66-year-old woman without a known history of cardiac disease who presented to the emergency room with symptoms of palpitations, rapid heart rate and chest discomfort. Patient states that she was just attempting to go to sleep last evening when she was awoken by the symptoms. She did not have associated dizziness or lightheadedness. She did take some and acids in the hopes that this was related to known reflux, but her symptoms persisted. She sought evaluation in the emergency room where she was discovered to have atrial fibrillation and high ventricular rate. Patient states that her symptoms resolved shortly after arrival in the emergency room. She believes the duration was 2 hours. She recalls a very similar episode several months ago that was quite brief in nature. She is an otherwise active individual who is accustomed to outdoor activity. She does not report any limitations associated with activity. She will take a brief rest in the afternoon, but does not report any exertional chest pains, shortness of breath or dizziness. She has a very rare and fleeting palpitation. She does have a home blood pressure cuff and a watch which monitors her heart rate. She has not noticed any abnormal readings recently. Currently feeling well. Allergies Allergy/AdvReac Type Severity Reaction Status Date / Time codeine AdvReac Intermediate HEADACHE Verified 08/04/22 01:58 lisinopril AdvReac Intermediate COUGH Verified 08/04/22 01:58 Home Medications Medication Instructions Recorded Confirmed Type Juice Plus 6 cap PO DAILY 03/13/21 08/04/22 History losartan 100 mg tablet 100 mg PO DAILY #90 tabs 02/06/22 08/04/22 Rx Patient History Medical History 1st MTP arthritis Acid reflux DIET CONTROLLED Arthritis Arthritis, midfoot Bunion of great toe Esophageal dysphagia Esophagitis CONTROLLED BY DIET History of asthma IN THE PAST R/T ALLERGIES (NO INHALER) Hyperparathyroidism, unspecified (02/16/13) HX OF (HAD SURGERY TO CORRECT) Hypertension Schatzki's ring Seasonal allergies Surgical History History of arthroscopy of left knee History of carpal tunnel release LEFT History of esophagogastroduodenoscopy (EGD) History of parathyroidectomy 06/2012 @ [facility] [place]--d/t elevated calcium levels History of tooth extraction wisdom teeth History of total abdominal hysterectomy and bilateral salpingo-oophorectomy [place] teeth removed Family History Sister Family history of reaction to anesthesia nausea/vomiting Mother Family hx colonic polyps Social History Smoking Status: Never smoker Second Hand Exposure: No; Hx Alcohol Use: Yes Alcohol type: beer and wine Hx Substance Use: No Preferred Language: Kiswahili Communication Ability: Effective Cv/Cvn Cv Tsc System Operator Required: No Beliefs That Will Affect Care: None Current Living Situation: Spouse Feels Safe at Home: Yes Safety Concerns: Feels Safe At This Time Assistive Devices: Glasses Review of Systems Review of Systems: Per HPI. Physical Exam Physical Exam: She is alert and oriented x3. Mood affect appear normal. She answered all questions appropriately. HEENT: Sclerae are anicteric. Pupils are equal and reactive to light and accommodation. Extraocular movements were intact. Neuro: Cranial nerves intact Lungs: Lungs are clear to auscultation bilaterally. There are no rales wheezes or rhonchi. She has normal respiratory effort without use of accessory muscles. There is normal pulmonary excursion. Cardiac: The rhythm was regular. S1 and S2 were normal. There are no murmurs on examination. The PMI was not markedly displaced on palpation. Extremities: Patient has bilateral radial pulses that are equal in intensity. There is no evidence cyanosis or clubbing. There was no evidence of significant peripheral edema bilaterally. Skin: There are no rashes noted on examination today. Results & Data ([facility]) Vital Signs (Past 12 Hours) Vital Signs Temp Pulse Pulse Resp BP BP Pulse Ox 08/04/22 10:59 36.8 C 61 18 128/80 96 08/04/22 09:00 67 18 129/87 97 08/04/22 06:57 62 08/04/22 05:30 106 H 15 97 08/04/22 05:30 109/61 08/04/22 05:00 65 15 96 08/04/22 05:00 116/71 08/04/22 04:59 66 17 113/70 96 08/04/22 04:59 08/04/22 04:30 64 14 95 08/04/22 04:30 113/70 08/04/22 04:00 84 10 L 96 08/04/22 04:00 105/68 08/04/22 03:30 105 H 16 95 08/04/22 03:30 110/69 08/04/22 03:00 122 H 17 96 08/04/22 03:00 110/78 08/04/22 02:07 113 H 08/04/22 02:30 118 H 16 96 08/04/22 02:30 98/66 L 08/04/22 02:00 81 18 95 08/04/22 02:00 127/32 L 08/04/22 01:40 105/57 L 08/04/22 01:40 90 17 08/04/22 01:35 156 H 14 08/04/22 01:41 100 H 17 92 08/04/22 01:22 36.0 C L 143 H 18 123/92 97 Pulse Ox O2 Del Method O2 Del Method 08/04/22 10:59 Room Air 08/04/22 09:00 Room Air 08/04/22 06:57 08/04/22 05:30 08/04/22 05:30 08/04/22 05:00 08/04/22 05:00 08/04/22 04:59 Room Air 08/04/22 04:59 96 Room Air 08/04/22 04:30 08/04/22 04:30 08/04/22 04:00 08/04/22 04:00 08/04/22 03:30 08/04/22 03:30 08/04/22 03:00 08/04/22 03:00 08/04/22 02:07 08/04/22 02:30 08/04/22 02:30 08/04/22 02:00 08/04/22 02:00 08/04/22 01:40 08/04/22 01:40 08/04/22 01:35 08/04/22 01:41 Room Air 08/04/22 01:22 Room Air Laboratory Results Abnormal Lab Results 08/04/22 08/04/22 08/04/22 01:37 01:37 01:37 WBC 7.58 RBC 5.29 Hgb 15.2 Hct 44.8 MCV 84.7 MCH 28.7 MCHC 33.9 RDW Std Deviation 39.8 RDW Coeff of Vincent 12.9 Plt Count 311 MPV 9.3 L Immature Gran % (Auto) 0.3 Neut % (Auto) 68.1 Lymph % (Auto) 22.7 [place] % (Auto) 5.9 Eos % (Auto) 2.9 Baso % (Auto) 0.1 Neut # (Auto) 5.16 Lymph # (Auto) 1.72 [place] # (Auto) 0.45 Eos # (Auto) 0.22 Baso # (Auto) 0.01 Immature Gran # (Auto) 0.02 PT 10.3 INR 1.0 APTT 27.5 PTT Ratio 1.0 Sodium 143 Potassium 3.5 Chloride 108 H Carbon Dioxide 29 Anion Gap 6 BUN 26 H Creatinine 0.78 Est Cr Clr Drug Dosing 70.4 Est GFR ( Amer) 90.5 Est GFR (Non-Af Amer) 78.1 BUN/Creatinine Ratio 33.3 H Glucose 174 H Calcium 10.3 H Magnesium 2.1 Total Bilirubin 0.4 AST 18 ALT 13 Alkaline Phosphatase 89 Troponin I High Sens 20.9 H Total Protein 6.7 Albumin 4.3 Globulin 2.4 L Albumin/Globulin Ratio 1.8 Lipase 38 TSH SARS-CoV-2, RNA, NAAT 08/04/22 08/04/22 01:37 01:45 WBC RBC Hgb Hct MCV MCH MCHC RDW Std Deviation RDW Coeff of Vincent Plt Count MPV Immature Gran % (Auto) Neut % (Auto) Lymph % (Auto) [place] % (Auto) Eos % (Auto) Baso % (Auto) Neut # (Auto) Lymph # (Auto) [place] # (Auto) Eos # (Auto) Baso # (Auto) Immature Gran # (Auto) PT INR APTT PTT Ratio Sodium Potassium Chloride Carbon Dioxide Anion Gap BUN Creatinine Est Cr Clr Drug Dosing Est GFR ( Amer) Est GFR (Non-Af Amer) BUN/Creatinine Ratio Glucose Calcium Magnesium Total Bilirubin AST ALT Alkaline Phosphatase Troponin I High Sens Total Protein Albumin Globulin Albumin/Globulin Ratio Lipase TSH 2.554 SARS-CoV-2, RNA, NAAT NEGATIVE Diagnostic Findings Chest x-ray obtained the time admission which did not reveal any acute cardiopulmonary process. Echocardiogram obtained 08/04/2022 normal LV systolic function. Stage I diastolic dysfunction. Mild aortic valve sclerosis and moderate mitral annular calcification. Exercise treadmill test performed 12/30/2021: Patient exercised for 9 minutes and 31 seconds. No evidence of inducible ischemia. ECG Additional Comments: EKG obtained on the time admission revealed atrial fibrillation rapid ventricular response. Some minor ST segment changes. PG Care Time/CCT Total # of Minutes Spent Total Time Spent with Patient: Total time spent is greater than 50% in coordination of care (as documented) at patient's floor/unit and/or counseling patient: Coding Level of Care Code 09692 INT INP/OBS CARE 3/75MIN Diagnoses Atrial fibrillation with RVR I48.91 Elevated troponin R77.8
[2022-08-04 12:28] LABS: Basophils # (auto) 0.03 K/uL (0-0.2); Basophils % (auto) 0.4 %; Eosinophils # (auto) 0.13 K/uL (0-0.50); Eosinophils % (auto) 1.9 %; Hematocrit (blood only) 43.9 % (37.0-47.0); Hemoglobin 14.7 g/dl (12.0-16.0); Immature Granulocytes # (auto) 0.02 K/uL (0.01-0.20); Immature Granulocytes % (auto) 0.3 %; Lymphocytes # (auto) 1.47 K/uL (1.2-3.4); Lymphocytes % (auto) 21.9 %; Mean Corpuscular Hemoglobin 28.4 pg (25.0-34.0); Mean Corpuscular Hgb Conc 33.5 g/dL (32.0-36.0); Mean Corpuscular Volume 84.9 fL (80.0-100.0); Mean Platelet Volume 9.5 fL (9.4-12.4); Monocytes # (auto) 0.52 K/uL (0.11-0.59); Monocytes % (auto) 7.7 %; Neutrophils # (auto) 4.55 K/uL (1.40-6.50); Neutrophils % (auto) 67.8 %; Platelet Count 303 K/uL (130-400); RDW Standard Deviation 40.6 fL (36.4-46.3); Red Blood Count 5.17 M/uL (4.20-5.40); White Blood Count 6.72 K/ul (4.8-10.8)
[2022-08-04 12:33] LABS: Partial Thromboplastin Ratio 4.3
[2022-08-04 12:35] LABS: BUN Creatinine Ratio 25.8 (10-20); Calcium 9.8 mg/dl (8.5-10.1); Creatinine Clr Calc Pharmacy 88.5 ml/min; Est GFR (African American) 107.4 ml/min; Est GFR (Non-African American) 92.7 ml/min; Potassium 3.8 mmol/L (3.5-5.1)
[2022-08-04 12:45] LABS: Troponin I High Sensitivity 112.7 pg/ml (0-14)
[2022-08-04 12:51] LABS: Partial Thromboplastin Time 117.8 Seconds (21.0-31.0)
[2022-08-04] MEDS ORDERED: dilTIAZem HCL 240 MG CAPCR PO STA (13:54)
[2022-08-04 15:07] LABS: Partial Thromboplastin Ratio 1.1; Partial Thromboplastin Time 30.9 Seconds (21.0-31.0)
--- NOTE | 2022-08-04 16:10 | Discharge Summary ---
Date of Service August 04, 2022 Admission HPI Per Admitting Provider Sherrill Hutson is a 66-year-old female with history of GERD, asthma, hypertension and hyperparathyroidism presenting with acute onset of palpitations and chest pressure which began this evening around 2245. Patient was laying in bed when she had sudden onset of racing heart and substernal pressure. Patient with history of prior in November 2021 which was self-limiting. Presently feels well, heart rate is improved. Chest pressure has resolved. No additional complaints. Patient specifically denies shortness of breath, diaphoresis, syncope or dizziness. Denies fever, chills, nausea, vomiting, diarrhea. No prior history of arrhythmia or cardiac issues. In the ER heart rate ranging from low 100s to 140s. She was given diltiazem bolus and drip. ER course: Aspirin 324 mg Diltiazem 20 mg IV followed by drip Admission Exam Per Admitting Provider General: patient resting comfortably, NAD, non-toxic in appearance, AA&O x 4 Skin: warm, dry, intact, no rashes or lesions HEENT: NC/AT, PERRL, EOMI, anicteric sclera, conjunctiva without injection, external ear normal to inspection and nontender, nares patent, moist mucus membranes, dentition intact, no oropharyngeal lesions, neck supple, trachea midline, no LAD, no thyromegaly, no JVD Heart: +S1/S2, irregularly irregular, no m/r/g Lungs: equal air entry bilaterally, no rales/rhonchi/wheezes Abd: +BS, soft, NT/ND, no masses/organomegaly/ascites Ext: warm, 2+ pulses in UE/LE bilaterally, no clubbing/cyanosis or edema Neuro: nonfocal, patient AA&O x 4, speech intact, no facial droop, moving all extremities on command with equal strength 5/5 Principal Diagnosis New onset Atrial fibrillation with RVR Discharge Exam Constitutional: well-appearing, no acute distress HEENT: NCAT, no conjunctival injection CV: regular rhythm, no murmur appreciated, extremities well-perfused, no LE edema Resp: CTABL, no wheezes/rales/rhonchi appreciated, no increased work of breathing GI: soft, nondistended, nontender, BS normoactive MSK: no gross deformities appreciated Skin: warm, dry, no rash appreciated Discharge Data Allergies Allergy/AdvReac Type Severity Reaction Status Date / Time codeine AdvReac Intermediate HEADACHE Verified 08/04/22 01:58 lisinopril AdvReac Intermediate COUGH Verified 08/04/22 01:58 Consultations 08/04/22 02:42 ED Decision to Admit Stat 08/04/22 04:45 Consult Cardiology Routine Ordered Studies Laboratory Results WBC 6.72 K/ul (4.8-10.8) 08/04/22 11:51 RBC 5.17 M/uL (4.20-5.40) 08/04/22 11:51 Hgb 14.7 g/dl (12.0-16.0) 08/04/22 11:51 Hct 43.9 % (37.0-47.0) 08/04/22 11:51 MCV 84.9 fL (80.0-100.0) 08/04/22 11:51 MCH 28.4 pg (25.0-34.0) 08/04/22 11:51 MCHC 33.5 g/dL (32.0-36.0) 08/04/22 11:51 RDW Std Deviation 40.6 fL (36.4-46.3) 08/04/22 11:51 RDW Coeff of Vincent 13.0 % (11.5-14.5) 08/04/22 11:51 Plt Count 303 K/uL (130-400) 08/04/22 11:51 MPV 9.5 fL (9.4-12.4) 08/04/22 11:51 Immature Gran % (Auto) 0.3 % 08/04/22 11:51 Neut % (Auto) 67.8 % 08/04/22 11:51 Lymph % (Auto) 21.9 % 08/04/22 11:51 [place] % (Auto) 7.7 % 08/04/22 11:51 Eos % (Auto) 1.9 % 08/04/22 11:51 Baso % (Auto) 0.4 % 08/04/22 11:51 Neut # (Auto) 4.55 K/uL (1.40-6.50) 08/04/22 11:51 Lymph # (Auto) 1.47 K/uL (1.2-3.4) 08/04/22 11:51 [place] # (Auto) 0.52 K/uL (0.11-0.59) 08/04/22 11:51 Eos # (Auto) 0.13 K/uL (0-0.50) 08/04/22 11:51 Baso # (Auto) 0.03 K/uL (0-0.2) 08/04/22 11:51 Immature Gran # (Auto) 0.02 K/uL (0.01-0.20) 08/04/22 11:51 PT 10.3 Seconds (9.0-12.0) 08/04/22 01:37 INR 1.0 (0.9-1.1) 08/04/22 01:37 APTT 30.9 Seconds (21.0-31.0) 08/04/22 14:17 PTT Ratio 1.1 08/04/22 14:17 Sodium 142 mmol/L (136-145) 08/04/22 11:51 Potassium 3.8 mmol/L (3.5-5.1) 08/04/22 11:51 Chloride 108 mmol/L (98-107) H 08/04/22 11:51 Carbon Dioxide 29 mmol/L (21-32) 08/04/22 11:51 Anion Gap 5 (3-11) 08/04/22 11:51 BUN 16 mg/dl (6-23) 08/04/22 11:51 Creatinine 0.62 mg/dl (0.6-1.2) 08/04/22 11:51 Est Cr Clr Drug Dosing 88.5 ml/min 08/04/22 11:51 Est GFR ( Amer) 107.4 ml/min 08/04/22 11:51 Est GFR (Non-Af Amer) 92.7 ml/min 08/04/22 11:51 BUN/Creatinine Ratio 25.8 (10-20) H 08/04/22 11:51 Glucose 89 mg/dl (70-99(Fasting)) 08/04/22 11:51 Calcium 9.8 mg/dl (8.5-10.1) 08/04/22 11:51 Magnesium 2.1 mg/dl (1.7-2.4) 08/04/22 01:37 Total Bilirubin 0.4 mg/dl (0.2-1.0) 08/04/22 01:37 AST 18 U/L (13-39) 08/04/22 01:37 ALT 13 U/L (7-52) 08/04/22 01:37 Alkaline Phosphatase 89 U/L (34-104) 08/04/22 01:37 Troponin I High Sens 112.7 pg/ml (0-14) H* D 08/04/22 11:51 Total Protein 6.7 gm/dl (6.0-8.3) 08/04/22 01:37 Albumin 4.3 gm/dl (3.4-5.0) 08/04/22 01:37 Globulin 2.4 gm/dl (2.5-4.0) L 08/04/22 01:37 Albumin/Globulin Ratio 1.8 (0.9-2) 08/04/22 01:37 Lipase 38 U/L (11-82) 08/04/22 01:37 TSH 2.554 uIu/ml (0.300-4.500) 08/04/22 01:37 SARS-CoV-2, RNA, NAAT NEGATIVE (NEGATIVE) 08/04/22 01:45 Impressions Chest X-Ray 08/04/22 01:30 SINGLE VIEW CHEST CLINICAL HISTORY: Atypical chest pain. FINDINGS: An AP, portable, upright chest radiograph is correlated with chest CT dated 12/24/2011. The cardiomediastinal silhouette is top normal for projection. The lungs and pleural spaces are clear noting bibasilar scarring/atelectasis. No pneumothorax is seen. The skeletal structures are osteopenic. The bony thorax is grossly intact. IMPRESSION: No active disease in the chest. ACT 112: Negative or not required by law. Electronically signed by: Arslan Fernandez M.D. 08/04/2022 8:06 AM Hospital Course (1) Atrial fibrillation with RVR: Atrial fibrillation with RVR: 58-year-old female presenting with new onset atrial fibrillation with rapid ventricular response. No history of prior. No obvious triggerspatient denies alcohol use, heavy caffeine use. Transitioned from diltiazem drip to 240mg diltiazem daily. Rate is well controlled. In sinus rhythm Felice 2 VASc score = 3 points (age 66, female, history of hypertension); plan for anticoagulation with Eliquis Echo with grade 1 diastolic dysfunction Mg and TSH wnl Cardiology consultation and will f/u with them as an OP Elevated Troponin - Elevated troponin likely secondary to atrial fibrillation - was seen by cardiology Hypertension: - Plan to switch from losartan to diltiazem as per above (2) Hypertension: Total Time Total Time Spent Total Time Spent (In Minutes): 40 Discharge Plan Discharge Items Patient Disposition: Home - Self-Care Reason For Visit: ATRIAL FIBRILLATION Discharge Diagnosis: New onset atrial fibrillation Activity: Per Instructions section Non-emergency contact: Primary Care Provider Call non-emergency contact if: you have any medication questions and your symptoms worsen Follow-up/Referrals: Elizabeth Rosario CRNP [Primary Care Provider] - 08/06/22 10:30 am (PCP FOLLOW UP August 06, 2022 @ 10:30.) Diet: Regular Addtl Attending Provider Instructions: You were admitted for atrial fibrillation, an irregular heart rhythm. Cardiology saw you. We changed you blood pressure medication from losartan to diltiazem. You should stop taking the losartan, and then start staking diltiazem every morning. Because you were started on the diltiazem this afternoon, you should take it tomorrow around 11am and then after that you can start taking it every morning. This will help to keep your heart rate in a good range. We also started you on an Eliquis, which is an anticoagulation. You had a dose of this before you left the hospital. You should start taking it twice a day. If you have any issues with the cost of the medications please call us at [phone] Enciso. A discharge summary will be sent to your primary care physician to ensure continuity of care. Please bring this discharge summary with you to your next office appointment so that your provider can review it at that time. Follow-up appointments: We have requested a follow-up appointment with your primary care physician within one week of discharge. Please call their office if you do not hear from them. - We have also requested an appointment with cardiology. Medications: Your medication list has been reviewed and reconciled upon discharge to ensure accuracy and continuity of care. An updated list of all your medications is included with your hospital discharge paperwork. Please review this list closely, and make note of any changes. CONTACT YOUR PRIMARY CARE PROVIDER if you experience any of the following: Difficulty following your treatment plan, or difficulty taking medications CALL 911 OR GO TO THE EMERGENCY DEPARTMENT if you experience any of the fol lowing: Chest pain, palpations, short of breath Pending Studies at Discharge: No Stand-Alone Forms: My [facility], Smoking Cessation Medications and DC Order Prescriptions: New diltiazem HCl 240 mg Capsule,Extended Release 24hr 240 mg PO QAM 30 Days Qty: 30 0RF Eliquis 5 mg tablet 5 mg PO BID 30 Days Qty: 60 0RF Discontinued losartan 100 mg tablet 100 mg PO DAILY Qty: 90 3RF Patient Comments: QAM Juice Plus 6 cap PO DAILY Discharge Orders: Discharge Order (Routine); Ordered 08/04/22 Ordered By: Lima Medrano/Other Patient Handouts: AFib Dc, AFib Admission Data Admit Date/Time: 08/04/22 03:11 Attending Provider: Pedro Yang Admit Provider: Viviane Hickman Primary Care Provider: Elizabeth Rosario Other Providers: Viviane Hickman ; Fidencio Loza Other Interventions: Discharge Summary Assessment (RN) Last Done: 08/04/22 17:03 Supervising Physician Co-Signing Physician Notes Attending attestation Pt seen and examined in concert with Dr. Enciso. In agreement with the documented findings as noted in the resident documentation with any exceptions or additions as noted here. No further symptoms since cardioversion. Does report history of 1 brief episode of AF previously which spontaneously resolved. On examination, S1/S2 nl RRR no MCG. CTAB. Abd NT/ND BS+ve Atrial fibrillation with RVR s/p spontaneous cardioversion - transition to diltiazem 240mg daily and d/c heparin in favor of Eliquis w/ coordination re: cost of care Else see resident documentation as noted. Total attending physician time spent with this patient's care on the day of discharge: 40 minutes.
[2022-08-04] MEDS ORDERED: APIXABAN 5 MG TABLET PO SCH (16:15)
[2022-08-05] MEDS ORDERED: dilTIAZem HCL 240 MG CAPCR PO ONE (10:00)
[2022-08-06] MEDS ORDERED: dilTIAZem HCL 240 MG CAPCR PO SCH (09:00)
== END 2022-08-04 18:12 | disposition home or self-care (01) | DRG 310 ==
LOC: ED 01:19 → SUATTDRO 03:11 → EDINP 03:11 → 1E 04:46